=== PATIENT | female | born 1950 | race Caucasian/White ===

== ENCOUNTER → 2017-11-11 | Outpatient (CLI) | payer OTHER | LOC: M.CT 11:00 | DX: I25.10 Atherosclerotic heart disease of native coronary artery without angina pectoris (principal); I70.0 Atherosclerosis of aorta; R13.10 Dysphagia, unspecified; Z87.891 Personal history of nicotine dependence ==

== ENCOUNTER → 2018-09-19 | Outpatient (CLI) | payer OTHER | LOC: M.RAD 10:23 | DX: R13.12 Dysphagia, oropharyngeal phase (principal); J30.0 Vasomotor rhinitis ==

== ENCOUNTER 2018-11-04 22:48 | Emergency (ER) | payer OTHER ==
[~2018-11-04] VITALS: Ht 157.5 cm; Wt 48.1 kg
[2018-11-04] MEDS ORDERED: TRAZADONE (23:08)
[2018-11-04] MEDS ORDERED: BUSPAR (23:10)
[2018-11-04] MEDS ORDERED: VALBENAZINE (23:10)
[2018-11-04] MEDS ORDERED: CLONAZEPAM (23:11)
[2018-11-04 23:20] LABS: ABSOLUTE EOSINOPHILS 0.3 thou/uL (0.0-0.7); ABSOLUTE LYMPHOCYTES 2.1 thou/uL (0.8-5.3); ABSOLUTE MONOCYTES 0.6 thou/uL (0.0-1.2); ABSOLUTE NEUTROPHILS 4.2 thou/uL (1.6-8.1); BASOPHILS 0.6 %; EOSINOPHILS 3.6 %; HEMOGLOBIN 13.1 gm/dL (12.0-15.0); LYMPHOCYTES 29.6 %; MCH 34.4 pg (26.0-34.0); MCHC 34.6 g/dL (28.0-37.0); MCV 99.3 fL (80.0-100.0); MPV 8.8 fl. (7.2-11.1); NUCLEATED RBCS 0 /100WBC; PLATELET COUNT* 177 thou/uL (150-400); POLYS 58.2 %; RBC 3.83 mil/uL (4.20-5.00); RDW-CV 12.8 % (10.5-14.5); WBC 7.2 thou/uL (4.0-11.0)
[2018-11-04 23:24] LABS: ANION GAP 8 mmol/L (7-16); BUN 20 mg/dL (7-18); CALCIUM 9.1 mg/dL (8.5-10.1); CHLORIDE 105 mmol/L (98-107); CO2 31 mmol/L (21-32); CREATININE 1.1 mg/dL (0.6-1.3); GLUCOSE 100 mg/dL (70-99); POTASSIUM 3.7 mmol/L (3.5-5.1); SODIUM 144 mmol/L (136-145)
[2018-11-04 23:26] LABS: APTT 24.7 Seconds (25.0-31.3); INR 0.9; PROTIME 9.6 Seconds (9.20-11.50)
[2018-11-04 23:35] LABS: ALBUMIN 3.6 g/dL (3.4-5.0); ALKALINE PHOSPHATASE 76 U/L (46-116); NT-PRO BRAIN NAT PEPTIDE 242 pg/mL (<300); SGOT 25 U/L (15-37); SGPT 25 U/L (30-65); TOTAL BILIRUBIN 0.2 mg/dL (<0.1-1.0); TOTAL PROTEIN 6.7 g/dL (6.4-8.2); TROPONIN-I LEVEL <0.06 ng/mL (<0.06)
[2018-11-04 23:55] LABS: URINE BILIRUBIN NEGATIVE (Negative); URINE BLOOD NEGATIVE (Negative); URINE CLARITY CLEAR; URINE COLOR YELLOW; URINE GLUCOSE-RANDOM NEGATIVE (Negative); URINE KETONES NEGATIVE (Negative); URINE LEUKOCYTES-REFLEX NEGATIVE (Negative); URINE NITRITE-REFLEX NEGATIVE (Negative); URINE PROTEIN NEGATIVE (Negative); URINE UROBILINOGEN 0.2 E.U./dl (0.2-1.0)
[2018-11-05 00:42] VITALS: BP 118/59
--- NOTE | 2018-11-05 11:40 | EKG ---
[place] [address] ELECTROCARDIOGRAM REPORT Name: MERCEDES GUERRIER Room: [facility]#: [id number] Admission: 11/04/18 Attend Phys: Discharge: 11/05/18 Date of : 48 Report #: [id number] THIS REPORT FOR: //name// [facility] ED Test Date: 2018-11-04 Test Time: 23:21:06 Pat Name: MERCEDES GUERRIER Department: Room: Gender: F [employer] Order Clerk: BRITTNEE : 1950 Requested By: Panda Novoa Order Number: [id number] MD: Sp Troy Measurements Intervals [place] Rate: 64 P: 93 RI: 222 QRS: 43 QRSD: 120 T: 62 QT: 403 QTc: 416 Interpretive Statements Sinus rhythm Prolonged RI interval IVCD, consider atypical RBBB No previous ECG available for comparison Electronically Signed On 11-05-2018 11:39:59 CDT by Sp Troy [email or web address] <ELECTRONICALLY SIGNED> By: Sp Troy MD, [facility] 11/05/18 1139 20 20 Sp Troy MD, FAC /EPI
== END 2018-11-05 00:42 | disposition home or self-care (01) ==
LOC: M.ERS 22:48
PROVIDERS: Family Medicine
DX: R53.1 Weakness (principal); F03.90 Unspecified dementia, unspecified severity, without behavioral disturbance, psychotic disturbance, mood disturbance, and anxiety